=== PATIENT | female | born 1975 | race Caucasian/White ===

== ENCOUNTER 2016-07-06 12:34 | Emergency (ER) | payer BC ==
[2016-07-06] MEDS ORDERED: ONDANSETRON HCL/PF 2 MG/ML VIAL ONE (12:44)
[2016-07-06] MEDS ORDERED: MORPHINE SULFATE 4 MG/ML SYRG ONE (12:44)
[2016-07-06] MEDS ORDERED: MORPHINE SULFATE 4 MG/ML SYRG IV ONE (12:48)
[2016-07-06] MEDS ORDERED: ONDANSETRON HCL/PF 2 MG/ML VIAL IV ONE (12:49)
--- NOTE | 2016-07-06 12:57 | ERNOTE ---
Medical Problem HPI - Narrative Date of Service: 07/06/16 - General Chief Complaint: General Assessment Time Seen by Provider: 07/06/16 12:41 Source: patient, family - Immun/Allergies/Home Medications Immunizations: IMMUNIZATION HX Immunizations Up to Date Yes History of Influenza Vaccine No Hx Pneumococcal Vaccination No Allergies/Adverse Reactions: Allergies influenza virus vaccine, specific [Influenza Virus Vacc,Specific] Allergy (Mild , Verified 03/12/16 11:01) HIVES, EGG ALLERGY Sulfa (Sulfonamide Antibiotics) [Sulfa(Sulfonamide Antibiotics)] Adverse Reaction (Mild, Verified 03/12/16 11:01) RASH, ITCHING Home Medications: HOME MEDICATIONS Cyclobenzaprine HCl [Flexeril] 10 mg PO TID PRN 05/17/13 [Last Taken Unknown] Hydrochlorothiazide [Hydrodiuril] 25 mg PO DAILY 09/19/15 [Last Taken Unknown] Levothyroxine Sodium [Synthroid] 75 mcg PO DAILY 09/19/15 [Last Taken Unknown] Omeprazole [Prilosec] 20 mg PO BID 09/19/15 [Last Taken Unknown] Hydrocodone/Acetaminophen [Vicodin 5-300 mg Tablet] 1 - 2 tab PO Q8H PRN [Last Taken Unknown] Bupropion HCl [Wellbutrin Xl] 300 mg PO DAILY 03/06/16 [Last Taken Unknown] Fluoxetine HCl [Prozac] 40 mg PO DAILY 03/06/16 [Last Taken Unknown] Gabapentin [Neurontin] 600 mg PO TID 03/06/16 [Last Taken Unknown] busPIRone HCL [Buspar] 10 mg PO BID 03/06/16 [Last Taken Unknown] hydrOXYzine HCL [Atarax] 25 - 50 mg PO Q4H PRN 03/06/16 [Last Taken Unknown] Ibuprofen [Motrin] 200 - 800 mg PO Q6H PRN #100 tab 03/12/16 [Last Taken Unknown ] Oxycodone HCl/Acetaminophen [Percocet 5-325 mg Tablet] 1 each PO Q4H PRN #20 tablet 03/12/16 [Last Taken 07/06/16 09:00 2] Diazepam [Valium] 5 mg PO BID PRN #20 tablet 07/06/16 [Last Taken Unknown] Furosemide [Lasix] 20 mg PO DAILY 07/06/16 [Last Taken Unknown] risperiDONE [Risperdal] 0.25 mg PO DAILY 07/06/16 [Last Taken Unknown] traMADol HCL [Ultram] 50 mg PO QID PRN #20 tablet 07/06/16 [Last Taken Unknown] - History of Present History Timing: constant Severity: severe Review of Systems - Review of Systems Constitutional: Present: See HPI EYE: Present: no symptoms reported ENT: Present: no symptoms reported Respiratory: Present: no symptoms reported Cardiology: Present: chest pain Gastrointestinal/Abdominal: Present: no symptoms reported Genitourinary: Present: no symptoms reported Musculoskeletal: Present: joint pain Skin: Present: no symptoms reported Neurological: Present: no symptoms reported Endocrine: Present: no symptoms reported Hematologic/Lymphatic: Present: no symptoms reported Psych: Present: no symptoms reported - Patient's Past Medical History Patient History - Medical: Anemia, Depression, GERD, Hypothyroidism, Other Patient History - Cardiac/Respiratory: Hypertension Patient History - Cancer: No Hx of Cancer Patient History - Surgical Procedures: Appendectomy, Cholecystectomy, Hysterectomy, Tubal Ligation, Other - 9 back surgeries Patient History - Other: None LMP (Calendar): 02/22/16 - Family History Mother Family History - Medical: No pertinent hx Family History - Cardiac/Respiratory: Hyperlipidemia Father Family History - Medical: Anxiety, Diabetes Type 2, Depression Family History - Cardiac/Respiratory: Hypertension Brother Family History - Medical: Anxiety Family History - Cardiac/Respiratory: Hypertension, Hyperlipidemia Grandfather-Maternal Family History - Medical: , No pertinent hx Family History - Cardiac/Respiratory: Myocardial Infarction Grandfather-Paternal Family History - Medical: , No pertinent hx Family History - Cardiac/Respiratory: No pertinent hx Grandmother-Paternal Family History - Medical: , No pertinent hx Family History - Cardiac/Respiratory: No pertinent hx - Social History Living Situations: home Abuse History: No History of abuse Psych History: Hx of Anxiety, Hx of Depression Smoking Status: Current every day smoker Have you smoked in the past 12 months: Yes Do you dip or chew tobacco: No Patient requests Smoking Cessation Consult: No Initiate information on Smoking Cessation: No Alcohol Use: none Drug Use: other - Immunizations Immunizations Up to Date: Yes Hx Pneumococcal Vaccination: No History of Influenza Vaccine: No Physical Exam - Physical Exam General Appearance: Present: wd/wn, alert, severe distress Eye Exam: Normal inspection: bilateral, PERRL: bilateral Ears, Nose, Throat: Present: normal ENT inspection, hearing grossly normal, normal pharynx Neck: Present: normal inspection, nontender Respiratory: Present: no respiratory distress, normal breath sounds, no accessory muscle use, chest nontender, lungs clear Cardiovascular/Chest: Present: regular rate, rhythm, no murmur, normal peripheral pulses, chest tenderness - left sided chest tenderness to palpation Gastrointestinal/Abdominal: Present: normal bowel sounds, nontender, nondistended, soft, no organomegaly Rectal Exam: Present: deferred Back Exam: Present: normal inspection, normal range of motion Extremity Exam: Present: normal inspection, non-tender, no edema, normal range of motion Neurological Exam: Present: alert, oriented, normal mood/affect Skin Exam: Present: normal color, warm/dry Lymphatic Exam: Present: no adenopathy ED Progress - Results and Orders Patient's Lab Results:: I have reviewed the patient's lab results. - Vital Signs Patient's Vital Signs:: I have reviewed the patient's vital signs. Vital Signs: Vital Signs 07/06/16 12:42 Temperature 36.9 C Pulse Rate 108 H Respiratory 20 Rate Blood Pressure 187/109 O2 Sat by Pulse 97 Oximetry - X-Ray X-Ray #1 X-Ray: chest Interpretation: Interp. by me - Progress/Reassessment Chief Complaint: General Assessment Progress:: Improved - Transfer of Care Expected Disposition: Discharge Departure - Departure Clinical Impression: Chest wall pain, Muscle spasm Instructions: Chest Wall Pain, [id number], Muscle Cramps and Spasms, Easy-to- Read Referrals: [Primary Care Provider] - Prescriptions: Diazepam [Valium] 5 mg PO BID PRN #20 tablet PRN Reason: Moderate Pain traMADol HCL [Ultram] 50 mg PO QID PRN #20 tablet PRN Reason: Moderate Pain
[2016-07-06 13:07] LABS: Hematocrit 42.5 % (37.0-47.0); Hemoglobin 14.6 gm/dL (12.5-16.0); Mean Cell Volume 82.8 fl (78-100); Mean Corpuscular Hemoglobin 28.5 pg (27-31); Mean Corpuscular Hgb Conc 34.4 g/dl (32-36); Mean Platelet Volume 9.3 fl (6.0-9.5); Neutrophil # 5.2 K/mm3 (1.3-6.0); Neutrophil % 61.3 % (42-75.0); Platelet Count 293 K/mm3 (150-450); Red Blood Count 5.13 M/mm3 (4.2-5.4); White Blood Count 8.5 K/mm3 (4.0-10.5)
[2016-07-06 13:26] LABS: ALT 48 U/L (19-67); AST 25 U/L (0-48); Alkaline Phosphatase * 66 U/L (50-170); Anion Gap 16.4 mmol/L (6.8-13.8); BUN/Creatinine Ratio 12.4 (9.0-21.6); Bilirubin, Total 0.2 mg/dL (0.0-1.1); Blood Urea Nitrogen 11 mg/dL (3-23); CRP 0.9 mg/dL (0.0-0.9); Ca. Corrected For Albumin 9.2 mg/dL (8.4-10.2); Calcium * 9.5 mg/dL (7.9-10.9); Carbon Dioxide 23.5 mmol/L (24-32.6); Chloride 106 mmol/L (97-106); Glucose * 112 mg/dL (70-110); Lipase 122 U/L (73-393); Magnesium 1.9 mg/dL (1.2-2.8); Potassium 3.9 mmol/L (3.4-4.6); Sodium 142 mmol/L (132-142); Total Protein 7.8 gm/dL (6.2-8.2); Troponin I Less than 0.017 ng/ml (0.00-0.10)
[2016-07-06] MEDS ORDERED: METHYLPREDNISOLONE SOD SUCC/PF 40 MG/ML VIAL IV ONE (13:46)
[2016-07-06] MEDS ORDERED: KETOROLAC TROMETHAMINE 30 MG/ML VIAL IV ONE (13:46)
[2016-07-06] MEDS ORDERED: METHYLPREDNISOLONE SOD SUCC/PF 40 MG/ML VIAL ONE (13:53)
[2016-07-06] MEDS ORDERED: KETOROLAC TROMETHAMINE 30 MG/ML VIAL ONE (13:53)
[2016-07-06] MEDS ORDERED: LORazepam 2 MG/ML DISP.SYRIN IV ONE (14:07)
[2016-07-06] MEDS ORDERED: LORazepam 2 MG/ML DISP.SYRIN ONE (14:10)
--- OUTSIDE RECORDS SUMMARY | 2016-07-06 14:32 | XMS REPORT | Summary of Care ---
:1975 Author Organization [facility] Address [address] [place] [id number] Care Team Providers Name Role Phone Dilia Garvey Primary Care Physician Encounter Date(s): 10/02/15 - 10/02/[address] [phone]- [place] Discharge Diagnosis: Other psychoactive substance dependence with withdrawal, uncomplicated Discharge Diagnosis: Bipolar disorder Discharge Diagnosis: Generalized anxiety disorder Discharge Disposition: 01 Discharged to Home or Self Care Attending Physician: Michelle Mendez MD Referring Physician: Michelle Mendez MD Vital Signs Most recent to oldest [Reference Range]: 1 Peripheral Pulse Rate [60-100 bpm] 100 bpm (10/02/15 2:02 PM) SpO2 98 % (10/02/15 2:02 PM) Blood Pressure [90-130/60-90 mmHg] 140/60mmHg *HI* (10/02/15 2:02 PM) Mean Arterial Pressure, Cuff 87 mmHg (10/02/15 2:02 PM) Most recent to oldest [Reference Range]: 1 Weight Dosing 89.70 kg1 (10/02/15 2:03 PM) Weight Measured 89.7 kg (10/02/15 2:02 PM) 1Result Comment: This result was because the dosing weight was either not entered or it is>30 days old. This result is based off: Weight Measured October 02, 2015 14:02:00 CDT by Michelle Teran CMA Problem List Condition Effective Dates Status Health Status Informant Adhesive arachnoiditis(Confirmed) Active Chronic pain syndrome(Confirmed) Active Degenerative disc disease(Confirmed) Active Depression(Confirmed) Active Endometriosis (clinical)(Confirmed) Active Anxiety(Confirmed) Active GERD - Gastro-esophageal reflux Active disease(Confirmed) Insomnia(Confirmed) Active Post laminectomy syndrome(Confirmed) 2009 Active Back pain(Confirmed) Active Other psychoactive substance Active dependence with withdrawal, uncomplicated(Confirmed) Allergies, Adverse Reactions, Alerts Substance Reaction Severity Status egg-containing compound hives Severe Active Influenza Virus Vaccine Hives Mild Active sulfa drugs Itching Active Hives Medications Abilify 4 mg, Oral, Daily, 0 Refill(s), Start Date: 10/09/14 9:41:00 CDT Start Date: 10/09/14 Stop Date: 11/27/14 Status: DiscontinuedAbilify 2 mg oral tablet 2 tab(s), Oral, Daily, # 60 tab(s), 2 Refill(s), Start Date: 08/25/14 10:26:00 CDT, Pharmacy: [facility] [place] [id number] Start Date: 08/25/14 Stop Date: 09/09/14 Status: CompletedAbilify 2 mg oral tablet 1 tab(s), Oral, Daily, # 30 tab(s), 3 Refill(s), Start Date: 02/07/15 16:12:43 CDT, other reason (Rx) Start Date: 02/07/15 Stop Date: 06/07/15 Status: CompletedAbilify 2 mg oral tablet 2 tab(s), Oral, Daily, # 60 tab(s), 0 Refill(s), Start Date: 11/27/14 13:59:00 CDT, Pharmacy: [facility] Start Date: 11/27/14 Stop Date: 01/01/15 Status: CompletedAbilify 2 mg oral tablet 2 tab(s), Oral, Daily, # 60 tab(s), 3 Refill(s), Start Date: 01/01/15 13:55:46 CDT, Pharmacy: [facility] Start Date: 01/01/15 Stop Date: 02/07/15 Status: DiscontinuedAbilify 2 mg oral tablet 1 tab(s), Oral, Daily, # 30 tab(s), 0 Refill(s), Start Date: 08/03/14 12:18:00 CDT, Pharmacy: [facility] Start Date: 08/03/14 Stop Date: 08/25/14 Status: DiscontinuedAbilify 2 mg oral tablet 1 tab(s), Oral, Daily, # 30 tab(s), 3 Refill(s), Start Date: 06/07/15 16:42:55 LIBRARY TECHNICIAN, Pharmacy: [id number] Start Date: 06/07/15 Stop Date: 10/02/15 Status: CompletedAbilify 5 mg oral tablet 1 tab(s), Oral, Daily, # 30 tab(s), 0 Refill(s), Start Date: 10/02/15 14:02:00 CDT Start Date: 10/02/15 Status: OrderedALPRAZolam 0.5 mg oral tablet 1 tab(s), Oral, q6hr, PRN for anxiety, # 120 tab(s), 1 Refill(s), Start Date: 17:26:24 CDT, called to pharmacy (Rx) Start Date: 11/15/14 Stop Date: 03/07/15 Status: DiscontinuedALPRAZolam 0.5 mg oral tablet 1 tab(s), Oral, q6hr, PRN for anxiety, X 30 days, # 120 tab(s), 1 Refill(s), Start Date: 07/05/14 10:10:50 LIBRARY TECHNICIAN Start Date: 07/05/14 Stop Date: 09/19/14 Status: CompletedALPRAZolam 0.5 mg oral tablet 1 tab(s), Oral, q6hr, PRN for anxiety, # 120 tab(s), 3 Refill(s), Start Date: 16:14:10 CDT, called to pharmacy (Rx) Start Date: 03/07/15 Stop Date: 07/05/15 Status: OrderedALPRAZolam 0.5 mg oral tablet 1 tab(s), Oral, Daily, PRN for anxiety, called to [facility] at [facility], # 30 tab(s) , 0 Refill(s), called to pharmacy (Rx) Special Instructions: called to Lavinia at [facility] Start Date: 10/14/13 Stop Date: 11/10/13 Status: DiscontinuedALPRAZolam 0.5 mg oral tablet 1 tab(s), Oral, q6hr, PRN for anxiety, # 60 tab(s), 5 Refill(s), Start Date: 15:51:41 LIBRARY TECHNICIAN, called to pharmacy (Rx) Start Date: 04/05/14 Stop Date: 07/05/14 Status: DiscontinuedALPRAZolam 0.5 mg oral tablet 1 tab(s), Oral, q6hr, PRN for anxiety, # 120 tab(s), 3 Refill(s), Start Date: 15:34:51 CDT, called to pharmacy (Rx) Start Date: 03/07/15 Stop Date: 03/07/15 Status: DiscontinuedALPRAZolam 0.5 mg oral tablet 1 tab(s), Oral, q6hr, PRN for anxiety, X 30 days, # 120 tab(s), 1 Refill(s), Start Date: 09/19/14 12:45:07 CDT, called to pharmacy (Rx) Start Date: 09/19/14 Stop Date: 11/15/14 Status: CompletedALPRAZolam 0.5 mg oral tablet 1 tab(s), Oral, Daily, PRN for anxiety, called to Lavin[facility] at [facility], X 30 days, # 30 tab(s), 0 Refill(s), called to pharmacy (Rx) Special Instructions: called to [place] at [facility] Start Date: 09/06/13 Stop Date: 10/14/13 Status: CompletedALPRAZolam 0.5 mg oral tablet 1 tab(s), Oral, Daily, PRN for anxiety, 0 Refill(s) Start Date: 09/06/13 Stop Date: 09/06/13 Status: DiscontinuedALPRAZolam 0.5 mg oral tablet 1 tab(s), Oral, q6hr, PRN for anxiety, X 30 days, # 60 tab(s), 5 Refill(s), Start Date: 11/10/13 8:19:15 CDT Start Date: 11/10/13 Stop Date: 04/05/14 Status: Completedamitriptyline 25 mg oral tablet See Instructions, take 3 tabs daily, # 180 tab(s), 3 Refill(s), Start Date: 15:53:09 LIBRARY TECHNICIAN, Pharmacy: [id number] Special Instructions: take 3 tabs daily Start Date: 05/31/15 Stop Date: 09/03/15 Status: Discontinuedamitriptyline 25 mg oral tablet See Instructions, take 1-2 tabs daily, 0 Refill(s) Special Instructions: take 1-2 tabs daily Start Date: 09/29/13 Stop Date: 11/10/13 Status: Discontinuedamitriptyline 25 mg oral tablet See Instructions, take 3 tabs daily, # 60 tab(s), 11 Refill(s), Start Date: 11/22 8:35:32 LIBRARY TECHNICIAN, Pharmacy: [place] [id number] Special Instructions: take 3 tabs daily Start Date: 05/17/14 Stop Date: 05/31/15 Status: Discontinuedamitriptyline 25 mg oral tablet See Instructions, take 1-2 tabs daily, # 60 tab(s), 5 Refill(s) Special Instructions: take 1-2 tabs daily Start Date: 11/10/13 Stop Date: 05/17/14 Status: DiscontinuedAzithromycin 5 Day Dose Pack 250 mg oral tablet 1 packet(s), Oral, Per Package Label, as directed on package labeling, # 6 tab(s ), 0 Refill(s), Start Date: 02/07/15 16:20:00 CDT, Pharmacy: [place] [id number] Special Instructions: as directed on package labeling Start Date: 02/07/15 Stop Date: 03/07/15 Status: CompletedAzithromycin 5 Day Dose Pack 250 mg oral tablet 1 packet(s), Oral, Per Package Label, as directed on package labeling, X 5 days , # 6 tab(s), 0 Refill(s), Start Date: 05/31/15 15:54:00 LIBRARY TECHNICIAN, Pharmacy: [facility] Special Instructions: as directed on package labeling Start Date: 05/31/15 Stop Date: 06/05/15 Status: CompletedCalcium and Magnesium oral tablet 1 tab(s), Oral, Daily, # 30 tab(s), 0 Refill(s) Start Date: 09/29/13 Status: Orderedcyclobenzaprine 10 mg oral tablet 1 tab(s), Oral, TID, PRN for spasm, # 30 tab(s), 1 Refill(s), Pharmacy: [place] [id number] Start Date: 02/01/14 Stop Date: 05/17/14 Status: Discontinuedcyclobenzaprine 10 mg oral tablet 1 tab(s), Oral, TID, PRN for spasm, # 60 tab(s), 0 Refill(s), Start Date: 13:43:10 LIBRARY TECHNICIAN, Pharmacy: [place] [id number] Start Date: 06/14/15 Stop Date: 09/03/15 Status: Discontinuedcyclobenzaprine 10 mg oral tablet 1 tab(s), Oral, TID, PRN for spasm, # 30 tab(s), 1 Refill(s), Start Date: 8:35:57 LIBRARY TECHNICIAN, Pharmacy: [place] [id number] Start Date: 05/17/14 Stop Date: 09/05/14 Status: Completedcyclobenzaprine 10 mg oral tablet 1 tab(s), Oral, TID, PRN for spasm, # 30 tab(s), 1 Refill(s), Start Date: 14:59:23 CDT, Pharmacy: [place] [id number] Start Date: 09/05/14 Stop Date: 12/25/14 Status: Discontinuedcyclobenzaprine 10 mg oral tablet 1 tab(s), Oral, TID, PRN for spasm, # 270 tab(s), 3 Refill(s), Start Date: 09/02 16:22:29 CDT, Pharmacy: [place] [id number] Start Date: 09/03/15 Status: Orderedcyclobenzaprine 10 mg oral tablet 1 tab(s), Oral, TID, PRN for spasm, # 30 tab(s), 0 Refill(s) Start Date: 09/29/13 Stop Date: 02/01/14 Status: Discontinuedcyclobenzaprine 10 mg oral tablet 1 tab(s), Oral, TID, PRN for spasm, # 60 tab(s), 0 Refill(s), Start Date: 10:17:00 CDT, Pharmacy: [place] [id number] Start Date: 01/30/15 Stop Date: 06/14/15 Status: Completedcyclobenzaprine 10 mg oral tablet 1 tab(s), Oral, TID, PRN for spasm, # 30 tab(s), 0 Refill(s), Start Date: 10:17:00 CDT Start Date: 01/30/15 Stop Date: 01/30/15 Status: DiscontinuedDepo-Provera Contraceptive 150 mg/mL intramuscular suspension 150 mg, IM, q3mo, # 1 mL, 0 Refill(s), Start Date: 04/27/14 14:30:00 LIBRARY TECHNICIAN Start Date: 04/27/14 Stop Date: 08/01/14 Status: CompletedDepo-Provera Contraceptive 150 mg/mL intramuscular suspension 150 mg, IM, q3mo, # 1 mL, 0 Refill(s), Start Date: 08/01/14 15:22:40 CDT, Pharmacy: [facility] Start Date: 08/01/14 Stop Date: 10/25/14 Status: CompletedDepo-Provera Contraceptive 150 mg/mL intramuscular suspension 150 mg, IM, q3mo, # 1 mL, 1 Refill(s), Start Date: 10/25/14 14:57:51 CDT, Pharmacy: [facility] Start Date: 10/25/14 Stop Date: 05/31/15 Status: DiscontinuedDilaudid 2 mg oral tablet 1 tab(s), Oral, q4hr, PRN for pain, X 3 days, # 20 tab(s), 0 Refill(s), 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 Start Date: 03/28/15 Stop Date: 03/31/15 Status: DiscontinuedDME - [place] Cervical Collar See Instructions, DX: C5/6 DDD& STENOSIS; RIGHT& LEFT ARM PAIN/RADICULOPATHY DOS: 12/18/14, INPT, SX: ACDF C5/6 PRE ADMIT: 12/07/14 BRACE: CERVICAL BRACE L0174, HM, # 1 EA, 0Refill(s), 12/04/14 10:00:00 CDT, Supply Special Instructions: DX: C5/6 DDD& STENOSIS; RIGHT& LEFT ARM PAIN/ RADICULOPATHY DOS: 12/18/14, INPT, SX: ACDF C5/6 PRE ADMIT: 12/07/14 BRACE: CERVICAL BRACE L0174, HM Start Date: 12/04/14 Stop Date: 09/03/15 Status: DiscontinuedDME - [place] Cervical Collar See Instructions, DX: C5/6 DDD& STENOSIS; RIGHT& LEFT ARM PAIN/RADICULOPATHY DOS: 12/13/14, INPT, [id number] SX: TDA C5/6 VS. ACDF C5/6 PRE ADMIT: BRACE: SOFT CERVICAL [id number], HM FAX: [id number], # 1 EA, 0 Refill(s), 11/22/14 14: 45:00 CDT, S... Special Instructions: DX: C5/6 DDD& STENOSIS; RIGHT& LEFT ARM PAIN/ RADICULOPATHY DOS: 12/13/14, INPT, [id number] SX: TDA C5/6 VS. ACDF C5/6 PRE ADMIT: 11/30/14 BRACE: SOFT CERVICAL L0120, HMFAX: [id number] Start Date: 11/22/14 Stop Date: 12/04/14 Status: DiscontinuedDULoxetine 30 mg oral delayed release capsule 1 cap(s), Oral, Daily, do not crush or chew, # 30 cap(s), 3 Refill(s), Start Date: 02/07/15 16:13:00 CDT, Pharmacy: [facility] Special Instructions: do not crush or chew Start Date: 02/07/15 Stop Date: 02/22/15 Status: CompletedDULoxetine 30 mg oral delayed release capsule 1 cap(s), Oral, Daily, take with 60mg duloxetine to equal 90mg dose, # 90 cap(s) , 3 Refill(s), Start Date: 03/07/15 15:36:00 CDT, Pharmacy: [facility] Special Instructions: take with 60mg duloxetine to equal 90mg dose Start Date: 03/07/15 Stop Date: 09/03/15 Status: DiscontinuedDULoxetine 60 mg oral delayed release capsule 1 cap(s), Oral, Daily, do not crush or chew, # 30 cap(s), 0 Refill(s), Start Date: 02/23/15 9:57:21 CDT, Pharmacy: [facility] Special Instructions: do not crush or chew Start Date: 02/23/15 Stop Date: 03/07/15 Status: DiscontinuedDULoxetine 60 mg oral delayed release capsule 1 cap(s), Oral, Daily, do not crush or chew, # 30 cap(s), 0 Refill(s), Start Date: 02/22/15 17:27:00 CDT, Pharmacy: [facility] Special Instructions: do not crush or chew Start Date: 02/22/15 Stop Date: 02/23/15 Status: CompletedDULoxetine 60 mg oral delayed release capsule 1 cap(s), Oral, Daily, take with 30mg duloxetine to equal 90mg, # 90 cap(s), 3 Refill(s), Start Date: 03/07/15 15:35:32 CDT, Pharmacy: [facility] Special Instructions: take with 30mg duloxetine to equal 90mg Start Date: 03/07/15 Stop Date: 05/15/15 Status: CompletedDULoxetine 60 mg oral delayed release capsule 1 cap(s), Oral, BID, NEW DIRECTIONS, # 180 cap(s), 3 Refill(s), Start Date: 16:22:44 CDT, [facility] Special Instructions: NEW DIRECTIONS Start Date: 09/03/15 Stop Date: 10/02/15 Status: CompletedDULoxetine 60 mg oral delayed release capsule 1 cap(s), Oral, BID, NEW DIRECTIONS, # 60 cap(s), 3 Refill(s), Start Date: 05/15 15:04:53 LIBRARY TECHNICIAN, Pharmacy: [facility] Special Instructions: NEW DIRECTIONS Start Date: 05/15/15 Stop Date: 09/03/15 Status: DiscontinuedfentaNYL 12 mcg/hr transdermal film, extended release 1 patch(es), Topical, q3day, # 1 patch(es), 0 Refill(s), Start Date: 11/27/14 16 :59:00 CDT Start Date: 11/27/14 Stop Date: 11/29/14 Status: CompletedfentaNYL 12 mcg/hr transdermal film, extended release 1 patch(es), Topical, q3day, 0 Refill(s), Start Date: 11/27/14 16:59:00 CDT Start Date: 11/27/14 Stop Date: 11/27/14 Status: DiscontinuedfentaNYL 25 mcg/hr transdermal film, extended release 1 patch(es), Topical, q3day, # 1 patch(es), 0 Refill(s), Start Date: 11/29/14 16 :35:00 CDT Start Date: 11/29/14 Stop Date: 12/04/14 Status: CompletedfentaNYL 25 mcg/hr transdermal film, extended release 1 patch(es), Topical, q3day, # 10 patch(es), 0 Refill(s), Start Date: 12/04/14 10:58:56 CDT Start Date: 12/04/14 Stop Date: 12/25/14 Status: Discontinuedfurosemide 20 mg oral tablet 1 tab(s), Oral, Daily, # 90 tab(s), 3 Refill(s), Start Date: 03/07/15 15:40:00 CDT, called to pharmacy (Rx) Start Date: 03/07/15 Stop Date: 03/08/15 Status: Discontinuedfurosemide 20 mg oral tablet 1 tab(s), Oral, Daily, # 90 tab(s), 3 Refill(s), Start Date: 03/08/15 13:12:50 CDT, Pharmacy: [facility] Start Date: 03/08/15 Status: Orderedgabapentin 100 mg oral capsule 1 cap(s), Oral, TID, # 90 cap(s), 1 Refill(s), Start Date: 10/13/14 9:08:00 CDT , Pharmacy: [facility] Start Date: 10/13/14 Stop Date: 10/26/14 Status: Completedgabapentin 300 mg oral capsule 1 cap(s), Oral, TID, # 90 cap(s), 0 Refill(s), Start Date: 10/26/14 13:26:00 CDT Start Date: 10/26/14 Stop Date: 10/26/14 Status: Discontinuedgabapentin 300 mg oral capsule 1 cap(s), Oral, QID, # 120 cap(s), 3 Refill(s), Start Date: 03/08/15 13:12:25 CDT, Pharmacy: [facility] Start Date: 03/08/15 Stop Date: 06/07/15 Status: Completedgabapentin 300 mg oral capsule 1 cap(s), Oral, TID, increased to 2 q8hr prn, # 90 cap(s), 3 Refill(s), Start Date: 03/07/15 15:35:46 CDT, Pharmacy: [place] [id number] Special Instructions: increased to 2 q8hr prn Start Date: 03/07/15 Stop Date: 03/08/15 Status: Completedgabapentin 300 mg oral capsule 2 cap(s), Oral, TID, # 180 cap(s), 3 Refill(s), Start Date: 09/03/15 16:22:56 CDT, Pharmacy: [place] [id number] Start Date: 09/03/15 Status: Orderedgabapentin 300 mg oral capsule 1 cap(s), Oral, TID, increased to 2 q8hr prn, # 90 cap(s), 3 Refill(s), Start Date: 10/26/14 13:27:00 CDT Special Instructions: increased to 2 q8hr prn Start Date: 10/26/14 Stop Date: 03/07/15 Status: Discontinuedgabapentin 300 mg oral capsule 2 cap(s), Oral, TID, # 180 cap(s), 3 Refill(s), Start Date: 06/07/15 16:42:07 LIBRARY TECHNICIAN, Pharmacy: [place] [id number] Start Date: 06/07/15 Stop Date: 09/03/15 Status: Discontinuedhydrochlorothiazide 25 mg oral tablet 1 tab(s), Oral, Daily, # 90 tab(s), 3 Refill(s), Start Date: 05/31/15 15:53:21 LIBRARY TECHNICIAN, Pharmacy: [place] [id number] Start Date: 05/31/15 Stop Date: 09/03/15 Status: Discontinuedhydrochlorothiazide 25 mg oral tablet 1 tab(s), Oral, Daily, # 30 tab(s), 2 Refill(s), Start Date: 02/09/15 16:47:16 CDT, Pharmacy: [place] [id number] Start Date: 02/09/15 Stop Date: 05/31/15 Status: Discontinuedhydrochlorothiazide 25 mg oral tablet 1 tab(s), Oral, Daily, # 90 tab(s), 3 Refill(s), Start Date: 09/03/15 16:22:58 CDT, Pharmacy: [facility] Start Date: 09/03/15 Status: Orderedhydrochlorothiazide 25 mg oral tablet 1 tab(s), Oral, Daily, # 30 tab(s), 2 Refill(s), Start Date: 11/09/14 13:25:00 CDT, Pharmacy: [facility] Start Date: 11/09/14 Stop Date: 02/09/15 Status: Completedhydrochlorothiazide 25 mg oral tablet 1 tab(s), Oral, Daily, # 30 tab(s), 0 Refill(s), Start Date: 11/09/14 13:24:00 CDT Start Date: 11/09/14 Stop Date: 11/09/14 Status: DiscontinuedHYDROcodone-acetaminophen 5 mg-325 mg oral tablet 1 tab(s), Oral, q4hr, PRN for pain, # 90 tab(s), 0 Refill(s), Start Date: 10:22:31 LIBRARY TECHNICIAN Start Date: 05/31/14 Stop Date: 07/05/14 Status: DiscontinuedHYDROcodone-acetaminophen 5 mg-325 mg oral tablet 1 tab(s), Oral, q4hr, PRN for pain, # 120 tab(s), 0 Refill(s), Start Date: 07/05 10:16:38 LIBRARY TECHNICIAN Start Date: 07/05/14 Stop Date: 08/07/14 Status: CompletedHYDROcodone-acetaminophen 5 mg-325 mg oral tablet 1-2 tab(s), Oral, q6hr, PRN for pain, 0 Refill(s), Start Date: 04/11/15 8:14:00 LIBRARY TECHNICIAN Start Date: 04/11/15 Stop Date: 07/18/15 Status: DiscontinuedHYDROcodone-acetaminophen 5 mg-325 mg oral tablet 1 tab(s), Oral, q4hr, PRN for pain, # 90 tab(s), 0 Refill(s), Start Date: 10:14:20 LIBRARY TECHNICIAN Start Date: 07/05/14 Stop Date: 07/05/14 Status: DiscontinuedHYDROcodone-acetaminophen 5 mg-325 mg oral tablet 2 tab(s), Oral, TID, PRN for pain, MAX OF 6/24HRS, # 180 tab(s), 0 Refill(s), Start Date: 07/18/15 8:15:00 LIBRARY TECHNICIAN Special Instructions: MAX OF 6/24HRS Start Date: 07/18/15 Stop Date: 08/21/15 Status: CompletedHYDROcodone-acetaminophen 5 mg-325 mg oral tablet 1 tab(s), Oral, q4hr, PRN for pain, # 90 tab(s), 0 Refill(s), Start Date: 15:59:41 LIBRARY TECHNICIAN Start Date: 03/29/14 Stop Date: 05/01/14 Status: CompletedHYDROcodone-acetaminophen 5 mg-325 mg oral tablet 1 tab(s), Oral, q4hr, PRN for pain, # 60 tab(s), 0 Refill(s), Start Date: 15:57:15 LIBRARY TECHNICIAN Start Date: 03/29/14 Stop Date: 03/29/14 Status: DiscontinuedHYDROcodone-acetaminophen 5 mg-325 mg oral tablet 1 tab(s), Oral, q4hr, PRN for pain, # 90 tab(s), 0 Refill(s), Start Date: 10:08:52 LIBRARY TECHNICIAN Start Date: 07/05/14 Stop Date: 07/05/14 Status: DiscontinuedHYDROcodone-acetaminophen 5 mg-325 mg oral tablet 1 tab(s), Oral, q4hr, PRN for pain, # 120 tab(s), 0 Refill(s), Start Date: 08/07 14:01:14 CDT Start Date: 08/07/14 Stop Date: 09/04/14 Status: DiscontinuedHYDROcodone-acetaminophen 5 mg-325 mg oral tablet 2 tab(s), Oral, TID, PRN for pain, MAX OF 6/24HRS, # 180 tab(s), 0 Refill(s), Start Date: 09/19/15 14:20:00 CDT Special Instructions: MAX OF 6/24HRS Start Date: 09/19/15 Stop Date: 10/19/15 Status: OrderedHYDROcodone-acetaminophen 5 mg-325 mg oral tablet 1 tab(s), Oral, q4hr, PRN for pain, 0 Refill(s) Start Date: 09/29/13 Stop Date: 11/10/13 Status: DiscontinuedHYDROcodone-acetaminophen 5 mg-325 mg oral tablet 1 tab(s), Oral, q4hr, PRN for pain, # 60 tab(s), 0 Refill(s), Start Date: 15:54:35 CDT Start Date: 03/02/14 Stop Date: 03/29/14 Status: DiscontinuedHYDROcodone-acetaminophen 5 mg-325 mg oral tablet 2 tab(s), Oral, q6hr interval, PRN pain moderate 4-7, X 5 days, # 40 tab(s), 0 Refill(s), Start Date: 04/03/15 10:26:00 LIBRARY TECHNICIAN, Pharmacy: [facility] Start Date: 04/03/15 Stop Date: 04/08/15 Status: CompletedHYDROcodone-acetaminophen 5 mg-325 mg oral tablet See Instructions, 1 tab(s) Oral q4-6hr interval as needed written in office and address written on script, # 120 tab(s), 0 Refill(s), Start Date: 11:09:00 LIBRARY TECHNICIAN, other reason (Rx) Special Instructions: 1 tab(s) Oral q4-6hr interval as needed written in office and address written on script Start Date: 03/15/15 Stop Date: 04/03/15 Status: DiscontinuedHYDROcodone-acetaminophen 5 mg-325 mg oral tablet 2 tab(s), Oral, TID, PRN for pain, MAX OF 6/24HRS, # 180 tab(s), 0 Refill(s), Start Date: 08/21/15 14:36:02 CDT Special Instructions: MAX OF 6/24HRS Start Date: 08/21/15 Stop Date: 09/18/15 Status: CompletedHYDROcodone-acetaminophen 5 mg-325 mg oral tablet 1 tab(s), Oral, q4hr, PRN for pain, # 90 tab(s), 0 Refill(s), Start Date: 15:53:10 LIBRARY TECHNICIAN Start Date: 05/01/14 Stop Date: 05/31/14 Status: CompletedHYDROcodone-acetaminophen 5 mg-325 mg oral tablet 1 tab(s), Oral, q4hr, PRN for pain, # 60 tab(s), 4 Refill(s), Start Date: 8:19:00 CDT Start Date: 11/10/13 Stop Date: 03/02/14 Status: Completedhyoscyamine 0.125 mg oral tablet 1 tab(s), Oral, QID, PRN for spasm, # 20 tab(s), 0 Refill(s), Start Date: 15:41:00 LIBRARY TECHNICIAN, Pharmacy: [facility] Start Date: 03/29/15 Stop Date: 04/03/15 Status: DiscontinuedLevaquin 500 mg oral tablet 1 tab(s), Oral, Daily, X 7 days, # 7 tab(s), 0 Refill(s), 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 Start Date: 03/28/15 Stop Date: 04/03/15 Status: DiscontinuedLexapro 20 mg oral tablet 1 tab(s), Oral, Daily, # 30 tab(s), 11 Refill(s), Start Date: 05/17/14 8:35:36 LIBRARY TECHNICIAN, Pharmacy: [facility] Start Date: 05/17/14 Stop Date: 08/25/14 Status: DiscontinuedLexapro 20 mg oral tablet 1 tab(s), Oral, Daily, # 30 tab(s), 1 Refill(s), called to pharmacy (Rx) Start Date: 09/06/13 Stop Date: 11/10/13 Status: DiscontinuedLexapro 20 mg oral tablet 1 tab(s), Oral, Daily, # 30 tab(s), 0 Refill(s) Start Date: 09/06/13 Stop Date: 09/06/13 Status: DiscontinuedLexapro 20 mg oral tablet 1 tab(s), Oral, Daily, # 30 tab(s), 5 Refill(s) Start Date: 11/10/13 Stop Date: 05/17/14 Status: Discontinuedlisinopril 5 mg oral tablet 1 tab(s), Oral, Daily, # 30 tab(s), 2 Refill(s), Start Date: 11/09/14 13:25:00 CDT, Pharmacy: [id number] Start Date: 11/09/14 Stop Date: 11/27/14 Status: Discontinuedlisinopril 5 mg oral tablet 1 tab(s), Oral, Daily, # 30 tab(s), 0 Refill(s), Start Date: 11/09/14 13:24:00 CDT Start Date: 11/09/14 Stop Date: 11/09/14 Status: Discontinuedlosartan 25 mg oral tablet 1 tab(s), Oral, Daily, # 30 tab(s), 5 Refill(s), Start Date: 06/01/15 13:22:06 LIBRARY TECHNICIAN, Pharmacy: [place] [id number] Start Date: 06/01/15 Status: Orderedlosartan 25 mg oral tablet 1 tab(s), Oral, Daily, # 30 tab(s), 3 Refill(s), Start Date: 01/01/15 13:56:02 CDT, Pharmacy: [place] [id number] Start Date: 01/01/15 Stop Date: 06/01/15 Status: Completedlosartan 25 mg oral tablet 1 tab(s), Oral, Daily, # 30 tab(s), 0 Refill(s), Start Date: 11/27/14 17:00:00 CDT, Pharmacy: [place] [id number] Start Date: 11/27/14 Stop Date: 01/01/15 Status: Completedlosartan 25 mg oral tablet 1 tab(s), Oral, Daily, # 30 tab(s), 0 Refill(s), Start Date: 11/27/14 16:57:00 CDT Start Date: 11/27/14 Stop Date: 11/27/14 Status: DiscontinuedMedrol Dosepak See Instructions, 0 Refill(s) Start Date: 08/28/14 Stop Date: 08/28/14 Status: DiscontinuedMedrol Dosepak 4 mg oral tablet See Instructions, as directed on package labeling, # 1 package, 0 Refill(s), Start Date: 08/28/14 13:50:00 CDT, Pharmacy: [facility] [id number] Special Instructions: as directed on package labeling Start Date: 08/28/14 Stop Date: 09/04/14 Status: CompletedMedrol Dosepak 4 mg oral tablet 1 packet(s), Oral, Per Package Label, as directed on package labeling, # 21 tab( s), 0 Refill(s), Start Date: 12/25/14 9:56:00 CDT, Pharmacy: [id number] Special Instructions: as directed on package labeling Start Date: 12/25/14 Stop Date: 02/07/15 Status: CompletedMelatonin 5 mg oral tablet 1 tab(s), Oral, HS, PRN for insomnia, # 60 tab(s), 0 Refill(s) Start Date: 09/29/13 Status: OrderedmetroNIDAZOLE 500 mg oral tablet 1 tab(s), Oral, q12hr, X 7 days, # 14 tab(s), 0 Refill(s), 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 Start Date: 03/28/15 Stop Date: 04/04/15 Status: Completedmodafinil 200 mg oral tablet 1 tab(s), Oral, qAM, # 30 tab(s), 0 Refill(s), Start Date: 10/02/15 14:02:00 CDT Start Date: 10/02/15 Stop Date: 10/26/15 Status: Discontinuedmodafinil 200 mg oral tablet 1 tab(s), Oral, qAM, # 14 tab(s), 0 Refill(s), Start Date: 10/02/15 14:19:00 CDT Start Date: 10/02/15 Stop Date: 10/26/15 Status: Discontinuednabumetone 750 mg oral tablet 1 tab(s), Oral, BID, PRN pain moderate 4-7, # 30 tab(s), 0 Refill(s), Start Date : 09/29/13 10:07:00 CDT Start Date: 09/29/13 Stop Date: 12/25/14 Status: Discontinuedomeprazole 20 mg oral delayed release capsule 1 cap(s), Oral, BID, # 60 cap(s), 11 Refill(s), Start Date: 03/27/15 9:46:00 LIBRARY TECHNICIAN , Pharmacy: [id number] Start Date: 03/27/15 Status: Orderedomeprazole 20 mg oral delayed release capsule 1 cap(s), Oral, BID, # 30 cap(s), 0 Refill(s), Start Date: 03/27/15 9:46:00 LIBRARY TECHNICIAN Start Date: 03/27/15 Stop Date: 03/27/15 Status: DiscontinuedoxyCODONE-acetaminophen 5 mg-325 mg oral tablet See Instructions, 1 tab(s) Oral q4-6hr interval Max 7 per day, # 90 tab(s), 0 Refill(s), Start Date: 12/19/14 8:10:00 CDT, Pharmacy: [facility] [id number] Special Instructions: 1 tab(s) Oral q4-6hr interval Max 7 per day Start Date: 12/19/14 Stop Date: 01/30/15 Status: CompletedoxyCODONE-acetaminophen 5 mg-325 mg oral tablet 1 tab(s), Oral, q4hr interval, PRN for pain, do not fill until 12/17/14, X 30 days , # 180 tab(s), 0 Refill(s), Start Date: 12/17/14 10:59:00 CDT Special Instructions: do not fill until 12/17/14 Start Date: 12/17/14 Stop Date: 12/19/14 Status: DiscontinuedoxyCODONE-acetaminophen 5 mg-325 mg oral tablet 1 tab(s), Oral, q4hr interval, PRN for pain, X 30 days, # 180 tab(s), 0 Refill(s ), Start Date: 09/04/14 16:28:00 CDT Start Date: 09/04/14 Stop Date: 09/28/14 Status: CompletedoxyCODONE-acetaminophen 5 mg-325 mg oral tablet 1 tab(s), Oral, q4hr interval, PRN for pain, X 30 days, # 180 tab(s), 0 Refill(s ), Start Date: 11/17/14 8:30:32 CDT Start Date: 11/17/14 Stop Date: 12/17/14 Status: CompletedoxyCODONE-acetaminophen 5 mg-325 mg oral tablet 1 tab(s), Oral, TID, written in office and address added, # 120 tab(s), 0 Refill(s), Start Date: 02/01/15 10:37:00 CDT, other reason (Rx) Special Instructions: written in office and address added Start Date: 02/01/15 Stop Date: 02/27/15 Status: CompletedoxyCODONE-acetaminophen 5 mg-325 mg oral tablet 1 tab(s), Oral, q4hr, PRN for pain, 0 Refill(s) Start Date: 09/29/13 Stop Date: 03/29/14 Status: DiscontinuedoxyCODONE-acetaminophen 5 mg-325 mg oral tablet 1 tab(s), Oral, q4hr interval, PRN for pain, X 30 days, # 180 tab(s), 0 Refill(s ), Start Date: 10/26/14 13:28:23 CDT Start Date: 10/26/14 Stop Date: 11/17/14 Status: CompletedoxyCODONE-acetaminophen 5 mg-325 mg oral tablet 1 tab(s), Oral, QID, and address added, # 90 tab(s), 0 Refill(s), Start Date : 02/27/15 9:09:47 CDT, other reason (Rx) Special Instructions: and address added Start Date: 02/27/15 Stop Date: 05/31/15 Status: DiscontinuedoxyCODONE-acetaminophen 5 mg-325 mg oral tablet 1 tab(s), Oral, q4hr interval, PRN for pain, X 30 days, # 180 tab(s), 0 Refill(s ), Start Date: 09/28/14 15:07:44 CDT Start Date: 09/28/14 Stop Date: 10/26/14 Status: CompletedpredniSONE 50 mg oral tablet 1 tab(s), Oral, Daily, # 7 tab(s), 0 Refill(s), Start Date: 10/29/14 15:45:00 CDT Start Date: 10/29/14 Stop Date: 11/06/14 Status: CompletedPrenatal Multivitamins 1 tab, Oral, Daily, 0 Refill(s) Special Instructions: no longer taking Start Date: 09/29/13 Stop Date: 10/09/14 Status: DiscontinuedPROzac 20 mg oral capsule 1 cap(s), Oral, Daily, # 14 cap(s), 0 Refill(s), Start Date: 10/02/15 14:18:00 CDT, Pharmacy: [facility] Start Date: 10/02/15 Stop Date: 10/16/15 Status: OrderedPROzac 20 mg oral capsule 1 cap(s), Oral, Daily, # 60 cap(s), 0 Refill(s), Start Date: 10/02/15 14:02:00 CDT Start Date: 10/02/15 Stop Date: 10/02/15 Status: Discontinuedranitidine 75 mg oral tablet 1 tab(s), Oral, Daily, PRN PRN reflux, # 14 tab(s), 0 Refill(s), Start Date: 10:09:00 CDT Start Date: 09/29/13 Stop Date: 09/03/15 Status: Discontinuedsertraline 25 mg oral tablet 1 tab(s), Oral, Daily, take with 50mg, # 30 tab(s), 2 Refill(s), Start Date: 10:25:00 CDT, Pharmacy: [facility] Special Instructions: take with 50mg Start Date: 08/25/14 Stop Date: 11/27/14 Status: Completedsertraline 25 mg oral tablet 1 tab(s), Oral, Daily, take with 50mg, # 30 tab(s), 2 Refill(s), Start Date: 14:00:04 CDT, Pharmacy: [facility] Special Instructions: take with 50mg Start Date: 11/27/14 Stop Date: 02/07/15 Status: Discontinuedsertraline 50 mg oral tablet 1 tab(s), Oral, Daily, take with 25mg tablet, # 30 tab(s), 2 Refill(s), Start Date: 08/25/14 10:25:00 CDT, Pharmacy: [facility] Special Instructions: take with 25mg tablet Start Date: 08/25/14 Stop Date: 11/27/14 Status: Completedsertraline 50 mg oral tablet 1 tab(s), Oral, Daily, take with 25mg tablet, # 30 tab(s), 2 Refill(s), Start Date: 11/27/14 14:00:13 CDT, Pharmacy: [facility] Special Instructions: take with 25mg tablet Start Date: 11/27/14 Stop Date: 02/07/15 Status: DiscontinuedSynthroid 75 mcg (0.075 mg) oral tablet 1 tab(s), Oral, Daily, # 30 tab(s), 1 Refill(s), Start Date: 02/13/15 15:57:00 CDT, Pharmacy: [place] [id number] Start Date: 02/13/15 Stop Date: 04/16/15 Status: CompletedSynthroid 75 mcg (0.075 mg) oral tablet 1 tab(s), Oral, Daily, # 30 tab(s), 0 Refill(s), Start Date: 02/13/15 15:56:00 CDT Start Date: 02/13/15 Stop Date: 02/13/15 Status: DiscontinuedSynthroid 75 mcg (0.075 mg) oral tablet 1 tab(s), Oral, Daily, # 90 tab(s), 3 Refill(s), Start Date: 09/03/15 16:23:03 CDT, Pharmacy: [facility] Start Date: 09/03/15 Status: OrderedSynthroid 75 mcg (0.075 mg) oral tablet 1 tab(s), Oral, Daily, # 30 tab(s), 3 Refill(s), Start Date: 04/16/15 17:06:45 LIBRARY TECHNICIAN, Pharmacy: [facility] Start Date: 04/16/15 Stop Date: 09/03/15 Status: DiscontinuedtraMADol 50 mg oral tablet 1 tab(s), Oral, QID, PRN pain, # 120 tab(s), 5 Refill(s), Start Date: 07/17/15 16:48:03 LIBRARY TECHNICIAN, called to pharmacy (Rx) Start Date: 07/17/15 Status: OrderedtraMADol 50 mg oral tablet 1 tab(s), Oral, QID, PRN pain, # 120 tab(s), 5 Refill(s), Start Date: 12/07/14 17:38:00 CDT, called to pharmacy (Rx) Start Date: 12/07/14 Stop Date: 07/17/15 Status: CompletedtraMADol 50 mg oral tablet 1 tab(s), Oral, QID, PRN pain, 0 Refill(s), Start Date: 12/07/14 17:37:00 CDT Start Date: 12/07/14 Stop Date: 12/07/14 Status: DiscontinuedTylenol with Codeine #3 oral tablet 1-2 tab(s), Oral, q4hr, PRN for pain, X 30 days, # 100 tab(s), 0 Refill(s), Start Date: 09/04/14 16:23:00 CDT Start Date: 09/04/14 Stop Date: 09/04/14 Status: DiscontinuedValium 10 mg oral tablet 1 tab(s), Oral, TID, PRN pain moderate 4-7, # 90 tab(s), 0 Refill(s), Start Date : 12/09/14 15:18:00 CDT, called to pharmacy (Rx) Start Date: 12/09/14 Stop Date: 01/30/15 Status: CompletedValium 10 mg oral tablet 1 tab(s), Oral, TID, PRN pain moderate 4-7, # 30 tab(s), 0 Refill(s), Start Date : 10/29/14 15:45:00 CDT Start Date: 10/29/14 Stop Date: 11/09/14 Status: CompletedValium 10 mg oral tablet 1 tab(s), Oral, TID, PRN pain moderate 4-7, # 90 tab(s), 0 Refill(s), Start Date : 11/09/14 13:26:06 CDT, called to pharmacy (Rx) Start Date: 11/09/14 Stop Date: 12/05/14 Status: CompletedVitamin C 500 mg oral tablet 1 tab(s), Oral, Daily, # 30 tab(s), 0 Refill(s) Start Date: 09/29/13 Status: OrderedZofran ODT 4 mg oral tablet, disintegrating 1 tab(s), Oral, q4hr, PRN nausea/vomiting, X 5 days, # 30 tab(s), 0 Refill(s), 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 Start Date: 03/28/15 Stop Date: 04/02/15 Status: CompletedZofran ODT 4 mg oral tablet, disintegrating 1 tab(s), Oral, q8hr interval, PRN nausea/vomiting, # 21 tab(s), 0 Refill(s), Start Date: 03/27/15 16:42:00 LIBRARY TECHNICIAN, Pharmacy: [id number] Start Date: 03/27/15 Stop Date: 04/03/15 Status: OrderedZofran ODT 4 mg oral tablet, disintegrating 1 tab(s), Oral, As Indicated, PRN nausea/vomiting, # 10 tab(s), 0 Refill(s), Start Date: 03/27/15 16:39:00 LIBRARY TECHNICIAN Start Date: 03/27/15 Stop Date: 03/27/15 Status: Discontinued Results No data available for this section Immunizations Vaccine Date Refusal Reason tetanus/diphth/pertuss (Tdap) adult/adol 03/12/15 Procedures Procedure Date Related Diagnosis Body Site Cholecystectomy Laparoscopic1 04/03/15 Fusion Cervical (SCIP)2 12/18/14 Epidural Steroid Injection - Cervical3 11/06/14 Insertion Neurostimulator Dorsal Column4 04/12/14 Right salpingectomy5 10/2012 Open reversal of tubal ligation 09/2011 Lumbar spinal fusion6 06/2010 DCS - Dorsal column stimulator placement 2009 spinal fusion lumbar7 2003 Discectomy8 2002 Tubal ligation 1999 Procedure on back 1auto-populated from documented surgical [id number] from documented surgical [id number] from documented surgical [id number] from documented surgical [id number]/2003 L4-L5; 06/2010 L3-L4 revison [id number] 2 November and December Social History No data available for this section Assessment and Plan No data available for this section
--- OUTSIDE RECORDS SUMMARY | 2016-07-06 14:32 | XMS REPORT | Summary of Care ---
:1975 Author Organization [facility] Address [address] [place] [id number] Care Team Providers Name Role Phone Dilia Garvey Primary Care Physician Encounter Date(s): 10/02/15 - 10/02/[address] [id number] Discharge Diagnosis: Other psychoactive [...] Refill(s), Start Date: 08/25/14 10:26:00 CDT, Pharmacy: [facility] [place] [facility] [id number] Start Date: 08/25/14 Stop Date: 09/09/14 Status: CompletedAbilify 2 mg oral tablet 1 tab(s), Oral, Daily, # 30 tab(s), 3 Refill(s), Start Date: 02/07/15 16:12:43 CDT, other reason (Rx) Start Date: 02/07/15 Stop Date: 06/07/15 Status: CompletedAbilify 2 mg oral tablet 2 tab(s), Oral, Daily, # 60 tab(s), 0 Refill(s), Start Date: 11/27/14 13:59:00 CDT, [facility]acy: [facility] Start Date: 11/27/14 Stop Date: 01/01/15 Status: CompletedAbilify 2 mg oral tablet 2 tab(s), Oral, Daily, # 60 tab(s), 3 Refill(s), Start Date: 01/01/15 13:55:46 CDT, Pharmacy: [facility] Start Date: 01/01/15 Stop Date: 02/07/15 Status: DiscontinuedAbilify 2 mg oral tablet 1 tab(s), Oral, Daily, # 30 tab(s), 0 Refill(s), Start Date: 08/03/14 12:18:00 CDT, Pharmacy: [facility] Start Date: 08/03/14 Stop Date: 08/25/14 Status: DiscontinuedAbilify 2 mg oral tablet 1 tab(s), Oral, Daily, # 30 tab(s), 3 Refill(s), Start Date: 06/07/15 16:42:55 GENERAL PRACTICE, Pharmacy: [facility] Start Date: 06/07/15 Stop [...] tab(s), 1 Refill(s), Start Date: 07/05/14 10:10:50 GENERAL PRACTICE Start Date: 07/05/14 Stop Date: 09/19/14 Status: CompletedALPRAZolam 0.5 mg oral tablet 1 tab(s), Oral, q6hr, PRN for anxiety, # 120 tab(s), 3 Refill(s), Start Date: 16:14:10 CDT, called to pharmacy (Rx) Start Date: 03/07/15 Stop Date: 07/05/15 Status: OrderedALPRAZolam 0.5 mg oral tablet 1 tab(s), Oral, Daily, PRN for anxiety, called to [place] at [facility], # 30 tab(s) , 0 Refill(s), called to pharmacy (Rx) Special Instructions: called to [place] at [facility] Start Date: 10/14/13 Stop Date: 11/10/13 Status: DiscontinuedALPRAZolam 0.5 mg oral tablet 1 tab(s), Oral, q6hr, PRN for anxiety, # 60 tab(s), 5 Refill(s), Start Date: 15:51:41 GENERAL PRACTICE, called to pharmacy (Rx) Start Date: 04/05/14 [...] PRN for anxiety, called to [place] at [facility], X 30 days, # 30 tab(s), 0 Refill(s), called to pharmacy (Rx) Special Instructions: called to [place] at [facility] Start Date: 09/06/13 Stop Date: 10/14/13 Status: [...] 180 tab(s), 3 Refill(s), Start Date: 15:53:09 GENERAL PRACTICE, Pharmacy: [facility] Special Instructions: take 3 tabs daily Start Date: 05/31/15 Stop Date: 09/03/15 Status: Discontinuedamitriptyline 25 mg oral tablet See Instructions, take 1-2 tabs daily, 0 Refill(s) Special Instructions: take 1-2 tabs daily Start Date: 09/29/13 Stop Date: 11/10/13 Status: Discontinuedamitriptyline 25 mg oral tablet See Instructions, take 3 tabs daily, # 60 tab(s), 11 Refill(s), Start Date: 11/22 8:35:32 GENERAL PRACTICE, Pharmacy: [place] [id number] Special Instructions: take 3 tabs daily Start [...] Refill(s), Start Date: 02/07/15 16:20:00 CDT, Pharmacy: [place] [id number] Special Instructions: as directed on package labeling Start Date: 02/07/15 Stop Date: 03/07/15 Status: CompletedAzithromycin 5 Day Dose Pack 250 mg oral tablet 1 packet(s), Oral, Per Package Label, as directed on package labeling, X 5 days , # 6 tab(s), 0 Refill(s), Start Date: 05/31/15 15:54:00 GENERAL PRACTICE, Pharmacy: [facility] Special Instructions: as directed on package labeling Start Date: 05/31/15 Stop Date: 06/05/15 Status: CompletedCalcium and Magnesium oral tablet 1 tab(s), Oral, Daily, # 30 tab(s), 0 Refill(s) Start Date: 09/29/13 Status: Orderedcyclobenzaprine 10 mg oral tablet 1 tab(s), Oral, TID, PRN for spasm, # 30 tab(s), 1 Refill(s), Pharmacy: [place] [id number] Start Date: 02/01/14 Stop Date: 05/17/14 Status: Discontinuedcyclobenzaprine 10 mg oral tablet 1 tab(s), Oral, TID, PRN for spasm, # 60 tab(s), 0 Refill(s), Start Date: 13:43:10 GENERAL PRACTICE, Pharmacy: [place] [id number] Start Date: 06/14/15 Stop Date: 09/03/15 Status: Discontinuedcyclobenzaprine 10 mg oral tablet 1 tab(s), Oral, TID, PRN for spasm, # 30 tab(s), 1 Refill(s), Start Date: 8:35:57 GENERAL PRACTICE, Pharmacy: [place] [id number] Start Date: 05/17/14 Stop Date: 09/05/14 Status: Completedcyclobenzaprine 10 mg oral tablet 1 tab(s), Oral, TID, PRN for spasm, # 30 tab(s), 1 Refill(s), Start Date: 14:59:23 CDT, Pharmacy: [place] [id number] Start Date: 09/05/14 Stop Date: 12/25/14 Status: Discontinuedcyclobenzaprine 10 mg oral tablet 1 tab(s), Oral, TID, PRN for spasm, # 270 tab(s), 3 Refill(s), Start Date: 09/02 16:22:29 CDT, Pharmacy: [place] [id number] Start Date: 09/03/15 Status: Orderedcyclobenzaprine 10 mg oral tablet 1 tab(s), Oral, TID, PRN for spasm, # 30 tab(s), 0 Refill(s) Start Date: 09/29/13 Stop Date: 02/01/14 Status: Discontinuedcyclobenzaprine 10 mg oral tablet 1 tab(s), Oral, TID, PRN for spasm, # 60 tab(s), 0 Refill(s), Start Date: 10:17:00 CDT, Pharmacy: [place] [id number] Start Date: 01/30/15 Stop Date: 06/14/15 Status: Completedcyclobenzaprine 10 mg oral tablet 1 tab(s), Oral, TID, PRN for spasm, # 30 tab(s), 0 Refill(s), Start Date: 10:17:00 CDT Start Date: 01/30/15 Stop Date: 01/30/15 Status: DiscontinuedDepo-Provera Contraceptive 150 mg/mL intramuscular suspension 150 mg, IM, q3mo, # 1 mL, 0 Refill(s), Start Date: 04/27/14 14:30:00 GENERAL PRACTICE Start Date: 04/27/14 Stop Date: 08/01/14 Status: CompletedDepo-Provera Contraceptive 150 mg/mL intramuscular suspension 150 mg, IM, q3mo, # 1 mL, 0 Refill(s), Start Date: 08/01/14 15:22:40 CDT, [facility]acy: [facility] Start Date: 08/01/14 Stop Date: 10/25/14 Status: CompletedDepo-Provera Contraceptive 150 mg/mL intramuscular suspension 150 mg, IM, q3mo, # 1 mL, 1 Refill(s), Start Date: 10/25/14 14:57:51 CDT, [facility]acy: [facility] Start Date: 10/25/14 Stop Date: 05/31/15 Status: DiscontinuedDilaudid 2 mg oral tablet 1 tab(s), Oral, q4hr, PRN for pain, X 3 days, # 20 tab(s), 0 Refill(s), Start Date: 03/28/15 16:06:00 GENERAL PRACTICE Start Date: 03/28/15 Stop Date: 03/31/15 Status: DiscontinuedDME - [place] Cervical Collar See Instructions, DX: C5/6 [...] RIGHT& LEFT ARM PAIN/RADICULOPATHY DOS: 12/13/14, INPT, [id number] SX: TDA C5/6 VS. ACDF C5/6 PRE ADMIT: BRACE: SOFT CERVICAL L0120, HM FAX: [id number], # 1 EA, 0 Refill(s), 11/22/14 14: 45:00 CDT, S... Special Instructions: DX: C5/6 DDD& STENOSIS; RIGHT& LEFT ARM PAIN/ RADICULOPATHY DOS: 12/13/14, INPT, [id number] SX: TDA C5/6 VS. ACDF C5/6 PRE ADMIT: 11/30/14 BRACE: SOFT CERVICAL L0120, HMFAX: [id number] Start Date: 11/22/14 Stop Date: 12/04/14 Status: DiscontinuedDULoxetine 30 mg oral delayed release capsule 1 cap(s), Oral, Daily, do not crush or chew, # 30 cap(s), 3 Refill(s), Start Date: 02/07/15 16:13:00 CDT, [facility]acy: [facility] Special Instructions: do not crush or chew Start Date: 02/07/15 Stop Date: 02/22/15 Status: CompletedDULoxetine 30 mg oral delayed release capsule 1 cap(s), Oral, Daily, take with 60mg duloxetine to equal 90mg dose, # 90 cap(s) , 3 Refill(s), Start Date: 03/07/15 15:36:00 CDT, Pharmacy: [facility] Special Instructions: take with 60mg duloxetine to equal 90mg dose Start Date: 03/07/15 Stop Date: 09/03/15 Status: DiscontinuedDULoxetine 60 mg oral delayed release capsule 1 cap(s), Oral, Daily, do not crush or chew, # 30 cap(s), 0 Refill(s), Start Date: 02/23/15 9:57:21 CDT, Pharmacy: [facility] Special Instructions: do not crush or chew Start Date: 02/23/15 Stop Date: 03/07/15 Status: DiscontinuedDULoxetine 60 mg oral delayed release capsule 1 cap(s), Oral, Daily, do not crush or chew, # 30 cap(s), 0 Refill(s), Start Date: 02/22/15 17:27:00 CDT, Pharmacy: [facility] Special Instructions: do not crush or chew Start Date: 02/22/15 Stop Date: 02/23/15 Status: CompletedDULoxetine 60 mg oral delayed release capsule 1 cap(s), Oral, Daily, take with 30mg duloxetine to equal 90mg, # 90 cap(s), 3 Refill(s), Start Date: 03/07/15 15:35:32 CDT, Pharmacy: [facility] Special Instructions: take with 30mg duloxetine to equal 90mg Start Date: 03/07/15 Stop Date: 05/15/15 Status: CompletedDULoxetine 60 mg oral delayed release capsule 1 cap(s), Oral, BID, NEW DIRECTIONS, # 180 cap(s), 3 Refill(s), Start Date: 16:22:44 CDT, Pharmacy: [facility] Special Instructions: NEW DIRECTIONS Start Date: 09/03/15 Stop Date: 10/02/15 Status: CompletedDULoxetine 60 mg oral delayed release capsule 1 cap(s), Oral, BID, NEW DIRECTIONS, # 60 cap(s), 3 Refill(s), Start Date: 05/15 15:04:53 GENERAL PRACTICE, Pharmacy: [facility] Special Instructions: NEW DIRECTIONS Start Date: 05/15/15 [...] Refill(s), Start Date: 03/08/15 13:12:50 CDT, [facility]acy: [facility] Start Date: 03/08/15 Status: Orderedgabapentin 100 mg oral capsule 1 cap(s), Oral, TID, # 90 cap(s), 1 Refill(s), Start Date: 10/13/14 9:08:00 CDT , [facility]acy: [facility] Start Date: 10/13/14 Stop Date: 10/26/14 Status: Completedgabapentin 300 mg oral capsule 1 cap(s), Oral, TID, # 90 cap(s), 0 Refill(s), Start Date: 10/26/14 13:26:00 CDT Start Date: 10/26/14 Stop Date: 10/26/14 Status: Discontinuedgabapentin 300 mg oral capsule 1 cap(s), Oral, QID, # 120 cap(s), 3 Refill(s), Start Date: 03/08/15 13:12:25 CDT, Pharmacy: [facility] Start Date: 03/08/15 Stop Date: 06/07/15 Status: Completedgabapentin 300 mg oral capsule 1 cap(s), Oral, TID, increased to 2 q8hr prn, # 90 cap(s), 3 Refill(s), Start Date: 03/07/15 15:35:46 CDT, Pharmacy: [place] [id number] Special Instructions: increased to 2 q8hr prn Start Date: 03/07/15 Stop Date: 03/08/15 Status: Completedgabapentin 300 mg oral capsule 2 cap(s), Oral, TID, # 180 cap(s), 3 Refill(s), Start Date: 09/03/15 16:22:56 CDT, Pharmacy: [place] [id number] Start Date: 09/03/15 Status: Orderedgabapentin 300 mg oral capsule 1 cap(s), Oral, TID, increased to 2 q8hr prn, # 90 cap(s), 3 Refill(s), Start Date: 10/26/14 13:27:00 CDT Special Instructions: increased to 2 q8hr prn Start Date: 10/26/14 Stop Date: 03/07/15 Status: Discontinuedgabapentin 300 mg oral capsule 2 cap(s), Oral, TID, # 180 cap(s), 3 Refill(s), Start Date: 06/07/15 16:42:07 GENERAL PRACTICE, Pharmacy: [place] [id number] Start Date: 06/07/15 Stop Date: 09/03/15 Status: Discontinuedhydrochlorothiazide 25 mg oral tablet 1 tab(s), Oral, Daily, # 90 tab(s), 3 Refill(s), Start Date: 05/31/15 15:53:21 GENERAL PRACTICE, Pharmacy: [place] [id number] Start Date: 05/31/15 Stop Date: 09/03/15 Status: Discontinuedhydrochlorothiazide 25 mg oral tablet 1 tab(s), Oral, Daily, # 30 tab(s), 2 Refill(s), Start Date: 02/09/15 16:47:16 CDT, Pharmacy: [place] [id number] Start Date: 02/09/15 Stop Date: 05/31/15 Status: Discontinuedhydrochlorothiazide 25 mg oral tablet 1 tab(s), Oral, Daily, # 90 tab(s), 3 Refill(s), Start Date: 09/03/15 16:22:58 CDT, Pharmacy: [facility] Start Date: 09/03/15 Status: Orderedhydrochlorothiazide 25 mg oral tablet 1 tab(s), Oral, Daily, # 30 tab(s), 2 Refill(s), Start Date: 11/09/14 13:25:00 CDT, Pharmacy: [facility] Start Date: 11/09/14 Stop Date: 02/09/15 Status: Completedhydrochlorothiazide 25 mg oral tablet 1 tab(s), Oral, Daily, # 30 tab(s), 0 Refill(s), Start Date: 11/09/14 13:24:00 CDT Start Date: 11/09/14 Stop Date: 11/09/14 Status: DiscontinuedHYDROcodone-acetaminophen 5 mg-325 mg oral tablet 1 tab(s), Oral, q4hr, PRN for pain, # 90 tab(s), 0 Refill(s), Start Date: 10:22:31 GENERAL PRACTICE Start Date: 05/31/14 Stop Date: 07/05/14 Status: DiscontinuedHYDROcodone-acetaminophen 5 mg-325 mg oral tablet 1 tab(s), Oral, q4hr, PRN for pain, # 120 tab(s), 0 Refill(s), Start Date: 07/05 10:16:38 GENERAL PRACTICE Start Date: 07/05/14 Stop Date: 08/07/14 Status: CompletedHYDROcodone-acetaminophen 5 mg-325 mg oral tablet 1-2 tab(s), Oral, q6hr, PRN for pain, 0 Refill(s), Start Date: 04/11/15 8:14:00 GENERAL PRACTICE Start Date: 04/11/15 Stop Date: 07/18/15 Status: DiscontinuedHYDROcodone-acetaminophen 5 mg-325 mg oral tablet 1 tab(s), Oral, q4hr, PRN for pain, # 90 tab(s), 0 Refill(s), Start Date: 10:14:20 GENERAL PRACTICE Start Date: 07/05/14 Stop Date: 07/05/14 Status: DiscontinuedHYDROcodone-acetaminophen 5 mg-325 mg oral tablet 2 tab(s), Oral, TID, PRN for pain, MAX OF 6/24HRS, # 180 tab(s), 0 Refill(s), Start Date: 07/18/15 8:15:00 GENERAL PRACTICE Special Instructions: MAX OF 6/24HRS Start Date: 07/18/15 Stop Date: 08/21/15 Status: CompletedHYDROcodone-acetaminophen 5 mg-325 mg oral tablet 1 tab(s), Oral, q4hr, PRN for pain, # 90 tab(s), 0 Refill(s), Start Date: 15:59:41 GENERAL PRACTICE Start Date: 03/29/14 Stop Date: 05/01/14 Status: CompletedHYDROcodone-acetaminophen 5 mg-325 mg oral tablet 1 tab(s), Oral, q4hr, PRN for pain, # 60 tab(s), 0 Refill(s), Start Date: 15:57:15 GENERAL PRACTICE Start Date: 03/29/14 Stop Date: 03/29/14 Status: DiscontinuedHYDROcodone-acetaminophen 5 mg-325 mg oral tablet 1 tab(s), Oral, q4hr, PRN for pain, # 90 tab(s), 0 Refill(s), Start Date: 10:08:52 GENERAL PRACTICE Start Date: 07/05/14 Stop Date: 07/05/14 Status: [...] tab(s), 0 Refill(s), Start Date: 04/03/15 10:26:00 GENERAL PRACTICE, Pharmacy: [facility] Start Date: 04/03/15 Stop Date: 04/08/15 Status: CompletedHYDROcodone-acetaminophen 5 mg-325 mg oral tablet See Instructions, 1 tab(s) Oral q4-6hr interval as needed written in office and address written on script, # 120 tab(s), 0 Refill(s), Start Date: 11:09:00 GENERAL PRACTICE, other reason (Rx) Special Instructions: 1 tab(s) [...] 90 tab(s), 0 Refill(s), Start Date: 15:53:10 GENERAL PRACTICE Start Date: 05/01/14 Stop Date: 05/31/14 Status: CompletedHYDROcodone-acetaminophen 5 mg-325 mg oral tablet 1 tab(s), Oral, q4hr, PRN for pain, # 60 tab(s), 4 Refill(s), Start Date: 8:19:00 CDT Start Date: 11/10/13 Stop Date: 03/02/14 Status: Completedhyoscyamine 0.125 mg oral tablet 1 tab(s), Oral, QID, PRN for spasm, # 20 tab(s), 0 Refill(s), Start Date: 15:41:00 GENERAL PRACTICE, Pharmacy: [facility] Start Date: 03/29/15 Stop Date: 04/03/15 Status: DiscontinuedLevaquin 500 mg oral tablet 1 tab(s), Oral, Daily, X 7 days, # 7 tab(s), 0 Refill(s), Start Date: 03/28/15 16:06:00 GENERAL PRACTICE Start Date: 03/28/15 Stop Date: 04/03/15 Status: DiscontinuedLexapro 20 mg oral tablet 1 tab(s), Oral, Daily, # 30 tab(s), 11 Refill(s), Start Date: 05/17/14 8:35:36 GENERAL PRACTICE, Pharmacy: [facility] Start Date: 05/17/14 Stop [...] Refill(s), Start Date: 11/09/14 13:25:00 CDT, Pharmacy: [facility] Start Date: 11/09/14 Stop Date: 11/27/14 Status: Discontinuedlisinopril 5 mg oral tablet 1 tab(s), Oral, Daily, # 30 tab(s), 0 Refill(s), Start Date: 11/09/14 13:24:00 CDT Start Date: 11/09/14 Stop Date: 11/09/14 Status: Discontinuedlosartan 25 mg oral tablet 1 tab(s), Oral, Daily, # 30 tab(s), 5 Refill(s), Start Date: 06/01/15 13:22:06 GENERAL PRACTICE, Pharmacy: [place] [id number] Start Date: 06/01/15 Status: Orderedlosartan 25 mg oral tablet 1 tab(s), Oral, Daily, # 30 tab(s), 3 Refill(s), Start Date: 01/01/15 13:56:02 CDT, Pharmacy: [place] [id number] Start Date: 01/01/15 Stop Date: 06/01/15 Status: Completedlosartan 25 mg oral tablet 1 tab(s), Oral, Daily, # 30 tab(s), 0 Refill(s), Start Date: 11/27/14 17:00:00 CDT, Pharmacy: [place] [id number] Start Date: 11/27/14 Stop Date: 01/01/15 Status: [...] Refill(s), Start Date: 08/28/14 13:50:00 CDT, Pharmacy: [place] [id number] Special Instructions: as directed on package labeling Start Date: 08/28/14 Stop Date: 09/04/14 Status: CompletedMedrol Dosepak 4 mg oral tablet 1 packet(s), Oral, Per Package Label, as directed on package labeling, # 21 tab( s), 0 Refill(s), Start Date: 12/25/14 9:56:00 CDT, Pharmacy: [facility] Special Instructions: as directed on package labeling Start Date: 12/25/14 Stop Date: 02/07/15 Status: CompletedMelatonin 5 mg oral tablet 1 tab(s), Oral, HS, PRN for insomnia, # 60 tab(s), 0 Refill(s) Start Date: 09/29/13 Status: OrderedmetroNIDAZOLE 500 mg oral tablet 1 tab(s), Oral, q12hr, X 7 days, # 14 tab(s), 0 Refill(s), Start Date: 03/28/15 16:06:00 GENERAL PRACTICE Start Date: 03/28/15 Stop Date: 04/04/15 Status: [...] cap(s), 11 Refill(s), Start Date: 03/27/15 9:46:00 GENERAL PRACTICE , Pharmacy: [facility] Start Date: 03/27/15 Status: Orderedomeprazole 20 mg oral delayed release capsule 1 cap(s), Oral, BID, # 30 cap(s), 0 Refill(s), Start Date: 03/27/15 9:46:00 GENERAL PRACTICE Start Date: 03/27/15 Stop Date: 03/27/15 Status: DiscontinuedoxyCODONE-acetaminophen 5 mg-325 mg oral tablet See Instructions, 1 tab(s) Oral q4-6hr interval Max 7 per day, # 90 tab(s), 0 Refill(s), Start Date: 12/19/14 8:10:00 CDT, Pharmacy: [facility] Special Instructions: 1 tab(s) Oral q4-6hr [...] Refill(s), Start Date: 10/02/15 14:18:00 CDT, Pharmacy: [facility] Start Date: 10/02/15 Stop [...] 2 Refill(s), Start Date: 10:25:00 CDT, Pharmacy: [facility] Special Instructions: take with 50mg Start Date: 08/25/14 Stop Date: 11/27/14 Status: Completedsertraline 25 mg oral tablet 1 tab(s), Oral, Daily, take with 50mg, # 30 tab(s), 2 Refill(s), Start Date: 14:00:04 CDT, Pharmacy: [facility] Special Instructions: take with 50mg Start Date: 11/27/14 Stop Date: 02/07/15 Status: Discontinuedsertraline 50 mg oral tablet 1 tab(s), Oral, Daily, take with 25mg tablet, # 30 tab(s), 2 Refill(s), Start Date: 08/25/14 10:25:00 CDT, Pharmacy: [facility] Special Instructions: take with 25mg tablet Start Date: 08/25/14 Stop Date: 11/27/14 Status: Completedsertraline 50 mg oral tablet 1 tab(s), Oral, Daily, take with 25mg tablet, # 30 tab(s), 2 Refill(s), Start Date: 11/27/14 14:00:13 CDT, Pharmacy: [facility] Special Instructions: take with 25mg tablet Start Date: 11/27/14 Stop Date: 02/07/15 Status: DiscontinuedSynthroid 75 mcg (0.075 mg) oral tablet 1 tab(s), Oral, Daily, # 30 tab(s), 1 Refill(s), Start Date: 02/13/15 15:57:00 CDT, Pharmacy: [place] [id number] Start Date: 02/13/15 Stop Date: 04/16/15 Status: CompletedSynthroid 75 mcg (0.075 mg) oral tablet 1 tab(s), Oral, Daily, # 30 tab(s), 0 Refill(s), Start Date: 02/13/15 15:56:00 CDT Start Date: 02/13/15 Stop Date: 02/13/15 Status: DiscontinuedSynthroid 75 mcg (0.075 mg) oral tablet 1 tab(s), Oral, Daily, # 90 tab(s), 3 Refill(s), Start Date: 09/03/15 16:23:03 CDT, Pharmacy: [facility] Start Date: 09/03/15 Status: OrderedSynthroid 75 mcg (0.075 mg) oral tablet 1 tab(s), Oral, Daily, # 30 tab(s), 3 Refill(s), Start Date: 04/16/15 17:06:45 GENERAL PRACTICE, Pharmacy: [facility] Start Date: 04/16/15 Stop Date: 09/03/15 Status: DiscontinuedtraMADol 50 mg oral tablet 1 tab(s), Oral, QID, PRN pain, # 120 tab(s), 5 Refill(s), Start Date: 07/17/15 16:48:03 GENERAL PRACTICE, called to pharmacy (Rx) Start Date: 07/17/15 [...] tab(s), 0 Refill(s), Start Date: 03/28/15 16:06:00 GENERAL PRACTICE Start Date: 03/28/15 Stop Date: 04/02/15 Status: CompletedZofran ODT 4 mg oral tablet, disintegrating 1 tab(s), Oral, q8hr interval, PRN nausea/vomiting, # 21 tab(s), 0 Refill(s), Start Date: 03/27/15 16:42:00 GENERAL PRACTICE, Pharmacy: [facility] Start Date: 03/27/15 Stop Date: 04/03/15 Status: OrderedZofran ODT 4 mg oral tablet, disintegrating 1 tab(s), Oral, As Indicated, PRN nausea/vomiting, # 10 tab(s), 0 Refill(s), Start Date: 03/27/15 16:39:00 GENERAL PRACTICE Start Date: 03/27/15 Stop Date: 03/27/15 Status: [...] Procedure on back 1auto-populated from documented surgical [id number] from documented surgical [id number] from documented surgical [id number] from documented surgical [id number]/2003 L4-L5; 06/2010 L3-L4 revison [id number] 2 November and December Social History No data available for this section Assessment and Plan No data available for this section
[2016-07-06 15:29] VITALS: BP 134/89
== END 2016-07-06 14:55 | disposition home or self-care (01) ==
LOC: ER 12:34
DX: R07.89 Other chest pain (principal); M62.838 Other muscle spasm; F17.210 Nicotine dependence, cigarettes, uncomplicated; K21.9 Gastro-esophageal reflux disease without esophagitis; E03.9 Hypothyroidism, unspecified; I10 Essential (primary) hypertension

== ENCOUNTER 2017-01-05 16:05 | Emergency (ER) | payer MEDICARE, BC ==
[2017-01-05] MEDS ORDERED: HYDROcodone/ACETAMINOPHEN 1 EACH TABLET PO ONE (16:31)
[2017-01-05] MEDS ORDERED: HYDROcodone/ACETAMINOPHEN 1 EACH TABLET ONE (16:33)
--- NOTE | 2017-01-05 17:06 | ERNOTE ---
Medical Problem HPI - General Chief Complaint: General Assessment Time Seen by Provider: 01/05/17 16:24 Source: patient, family - Immun/Allergies/Home Medications Immunizations: IMMUNIZATION HX Immunizations Up to Date Yes History of Influenza Vaccine No Hx Pneumococcal Vaccination No Allergies/Adverse Reactions: Allergies influenza virus vaccine, specific [Influenza Virus Vacc,Specific] Allergy (Mild , Verified 01/05/17 16:13) HIVES, EGG ALLERGY Sulfa (Sulfonamide Antibiotics) [Sulfa(Sulfonamide Antibiotics)] Adverse Reaction (Mild, Verified 01/05/17 16:13) RASH, ITCHING Home Medications: HOME MEDICATIONS Hydrochlorothiazide [Hydrodiuril] 25 mg PO DAILY 09/19/15 [Last Taken Unknown] Levothyroxine Sodium [Synthroid] 75 mcg PO DAILY 09/19/15 [Last Taken Unknown] Omeprazole [Prilosec] 20 mg PO BID 09/19/15 [Last Taken Unknown] Gabapentin [Neurontin] 600 mg PO TID 03/06/16 [Last Taken Unknown] Ibuprofen [Motrin] 200 - 800 mg PO Q6H PRN #100 tab 03/12/16 [Last Taken Unknown ] oxyCODONE HCL/ACETAMINOPHEN [Percocet 5-325 mg Tablet] 1 each PO Q4H PRN #20 tablet 03/12/16 [Last Taken 07/06/16 09:00 2] - History of Present History Narrative: Patient was recently diagnosed with mononucleosis and now presents with moderate to severe left upper quadrant pain with referred pain into the left shoulder. Timing: constant, getting worse Severity: moderate Review of Systems - Review of Systems Constitutional: Present: See HPI EYE: Present: no symptoms reported ENT: Present: no symptoms reported Respiratory: Present: no symptoms reported Cardiology: Present: no symptoms reported Gastrointestinal/Abdominal: Present: See HPI Genitourinary: Present: no symptoms reported Musculoskeletal: Present: no symptoms reported Skin: Present: no symptoms reported Neurological: Present: no symptoms reported Endocrine: Present: no symptoms reported Hematologic/Lymphatic: Present: no symptoms reported Psych: Present: no symptoms reported - Patient's Past Medical History Patient History - Medical: Anemia, Depression, GERD, Hypothyroidism, Other - infectious mononucleosis Patient History - Cardiac/Respiratory: Hypertension Patient History - Cancer: No Hx of Cancer Patient History - Surgical Procedures: Appendectomy, Cholecystectomy, Hysterectomy, Tubal Ligation, Other Patient History - Other: None LMP (Calendar): 02/22/16 - Family History Mother Family History - Medical: No pertinent hx Family History - Cardiac/Respiratory: Hyperlipidemia Father Family History - Medical: Anxiety, Diabetes Type 2, Depression Family History - Cardiac/Respiratory: Hypertension Brother Family History - Medical: Anxiety Family History - Cardiac/Respiratory: Hypertension, Hyperlipidemia Grandfather-Maternal Family History - Medical: , No pertinent hx Family History - Cardiac/Respiratory: Myocardial Infarction Grandfather-Paternal Family History - Medical: , No pertinent hx Family History - Cardiac/Respiratory: No pertinent hx Grandmother-Paternal Family History - Medical: , No pertinent hx Family History - Cardiac/Respiratory: No pertinent hx - Social History Living Situations: home Abuse History: No History of abuse Psych History: Hx of Anxiety, Hx of Depression Alcohol Use: none Drug Use: other - Immunizations Immunizations Up to Date: Yes Hx Pneumococcal Vaccination: No History of Influenza Vaccine: No Physical Exam - Physical Exam General Appearance: Present: wd/wn, alert, moderate distress Eye Exam: Normal inspection: bilateral, PERRL: bilateral Ears, Nose, Throat: Present: normal ENT inspection, H, normal pharynx Neck: Present: normal inspection, nontender Respiratory: Present: no respiratory distress, normal breath sounds, no accessory muscle use, chest nontender, lungs clear Cardiovascular/Chest: Present: regular rate, rhythm, no murmur, normal peripheral pulses Gastrointestinal/Abdominal: Present: normal bowel sounds, nondistended, soft, tenderness - in the left upper quadrant, other - spleen appears to be enlarged on palpation Rectal Exam: Present: deferred Back Exam: Present: normal inspection, normal range of motion Extremity Exam: Present: normal inspection, non-tender, no edema, normal range of motion Neurological Exam: Present: alert, oriented, normal mood/affect Skin Exam: Present: normal color, warm/dry Lymphatic Exam: Present: no adenopathy ED Progress - Vital Signs Patient's Vital Signs:: I have reviewed the patient's vital signs. Vital Signs: Vital Signs 01/05/17 16:08 Temperature 37.1 C Pulse Rate 87 Respiratory 12 Rate Blood Pressure 176/98 O2 Sat by Pulse 98 Oximetry - CT/Ultrasound CT/Ultrasound Narrative: Ultrasound report was reviewed by me - Progress/Reassessment Chief Complaint: General Assessment Plan - Plan Plan: I went over the ultrasound report with the patient and told her that it spleen does not appear to be ruptured and that appears to be good vascular supply into the spleen. Patient states that she has Percocet at home which is worried that something had happened to the spleen and I reassured her that it just takes 3-4 weeks now for all this to calm down. She agrees to follow-up with her family physician as needed. Departure - Departure Clinical Impression: Mononucleosis Disposition: Home self-care Condition: Good Instructions: Infectious Mononucleosis, [id number]
[2017-01-05 17:13] VITALS: BP 132/73
== END 2017-01-05 17:39 | disposition home or self-care (01) ==
LOC: ER 16:05
DX: B27.90 Infectious mononucleosis, unspecified without complication (principal); D64.9 Anemia, unspecified; F32.89 Other specified depressive episodes; K21.9 Gastro-esophageal reflux disease without esophagitis; E03.9 Hypothyroidism, unspecified; I10 Essential (primary) hypertension